=== PATIENT | female | born 1945 | race Caucasian/White ===

== ENCOUNTER → 2018-10-05 12:58 | Outpatient (CLI) | payer MEDICARE, OTHER, SELFPAY ==
--- NOTE | 2018-10-05 13:04 | DI.RAD.S_ITS ---
PROCEDURE: XR TOE RT MIN 2V INDICATIONS: big toe injury TECHNIQUE: 3 views of the first toe(s) acquired. COMPARISON: None. FINDINGS: Bones: No fractures or dislocations. No suspicious bony lesions. Soft tissues: No suspicious soft tissue densities. IMPRESSION: No fracture found, and no subluxation seen. Dictated by: Darrius Branch M.D. on 10/05/2018 at 13:29 Approved by: Darrius Branch M.D. on 10/05/2018 at 13:29
== END ==
PROVIDERS: Family Provider Family Medicine; PCP Family Medicine; Visit Provider Physician Assistant
DX: S99.921A Unspecified injury of right foot, initial encounter (principal); M79.674 Pain in right toe(s); X58.XXXA Exposure to other specified factors, initial encounter
CPT/HCPCS: 73660; 87070; 87205

== ENCOUNTER → 2018-10-05 13:56 | Outpatient (CLI) | payer MEDICARE, OTHER, SELFPAY | PROVIDERS: Family Provider Family Medicine; PCP Family Medicine; Visit Provider Physician Assistant | DX: T14.8XXA Other injury of unspecified body region, initial encounter (principal); M79.676 Pain in unspecified toe(s); M79.674 Pain in right toe(s) | CPT/HCPCS: 87070; 87205 ==

== ENCOUNTER 2019-12-09 06:56 | Emergency (ER) | payer MEDICARE, OTHER, SELFPAY ==
[2019-12-09] VITALS (7 sets, daily range): BP systolic 149–199; BP diastolic 68–81; PULSE 63–69; RESP 18; TEMP 36.6; O2SAT 91–99; BMI 30.7
--- NOTE | 2019-12-09 06:58 | ED_ITS ---
HPI - Abdominal Pain General Chief Complaint: Urogenital-Female Stated Complaint: LOWER RIGHT SIDE ABOMDINAL PAIN Time Seen by Provider: 12/09/19 06:58 Source: patient and family Mode of arrival: Ambulatory Limitations: no limitations History of Present Illness HPI narrative: 74-year-old female nonsmoker without significant medical history presents with her and a chief complaint of severe right lower quadrant pain with radiation to the back that started last night. She states that started rather suddenly and seems to come in waves. It is associated with some chills had a few episodes of vomiting. She did have 1 loose stool and states that the vomiting and bowel movement did not affect her discomfort whatsoever. She has had trouble starting urine stream. She denies any history of the same. She largely denies any provocation or palliation. MD complaint: abdominal pain and flank pain Onset (ago): hour(s) Pain Consistency: intermittent Location: RLQ Severity: moderate Quality: cramping, stabbing and aching Radiation: R flank Relieving factors: nothing Exacerbating factors: nothing Context: possible food poisoning Associated symptoms: nausea and vomiting Related Data Previous Rx's Medication Instructions Recorded azithromycin [Zithromax] 250 mg PO QDAY 5 Days #0 tab 05/04/17 hydrocodone-acetaminophen 1 tab PO Q4-6H PRN #10 tab 12/09/19 ketorolac 10 mg PO Q6H PRN #14 tab 12/09/19 ondansetron 4 mg PO TID-QID PRN #10 tab 12/09/19 tamsulosin [Flomax] 0.4 mg PO DAILY #10 cap 12/09/19 Allergies Allergy/AdvReac Type Severity Reaction Status Date / Time Sulfa (Sulfonamide Allergy Unknown Verified 12/09/19 09:12 Antibiotics) [SULFA (SULFONAMIDE ANTIBIOTICS)] Review of Systems Constitutional Constitutional: Denies chills, Denies fatigue, Denies fever(s), Denies frequent falls, Denies lethargy and Denies weakness Eyes Eyes: Denies change in vision, Denies eye discharge, Denies irritation and Denies loss of vision ENT Ears, Nose, Mouth, and Throat: Denies change in voice, Denies dizziness, Denies neck pain, Denies sore throat and Denies throat swelling Cardiovascular Cardiovascular: Denies chest pain, Denies irregular heart rhythm, Denies lightheadedness, Denies palpitations, Denies dyspnea, Denies dyspnea on exertion and Denies orthopnea Respiratory Respiratory: Denies cough, Denies dyspnea, Denies dyspnea on exertion and Denies wheezing Gastrointestinal Gastrointestinal: Reports abdominal pain, Denies change in bowel habits, Reports diarrhea, Reports nausea and Reports vomiting Genitourinary Genitourinary: Reports difficulty voiding Musculoskeletal Musculoskeletal: Denies neck pain and Denies numbness Integumentary/Breasts Skin/Breast: Denies pruritus, Denies erythema, Denies rash and Denies wounds Neurologic Neurologic: Denies behavioral changes, Denies confusion, Denies dizziness, Denies frequent falls, Denies loss of vision, Denies numbness and Denies weakness Psychiatric Psychiatric: Denies anxiety, Denies behavioral changes, Denies confusion, Denies depression, Denies homicidal ideation and Denies suicidal ideation Endocrine Endocrine: Denies fatigue, Denies flushing and Denies palpitations Hematologic/Lymphatic Hematologic/Lymphatic: Denies easy bruising Allergic/Immunologic Allergic/Immunologic: Denies urticaria, Denies throat swelling and Denies w heezing Patient History Social History Smoking Status: Never smoker Smoking Status: Never smoker alcohol intake frequency: 0-2 drinks per day Substance Use Type: does not use Exam Narrative Exam Narrative: GENERAL: [74] year old patient appears stated age. Well- nourished, well-developed patient, in mild distress. Obviously uncomfortable HEAD: Atraumatic. Normocephalic. EYES: Pupils equal round and reactive. Extraocular motions intact. No scleral icterus. No injection or drainage. ENT: Nose without bleeding, purulent drainage. Throat without erythema, tonsillar hypertrophy or exudate. Airway patent. NECK: Trachea midline. Non tender CARDIOVASCULAR: Regular rate and rhythm without murmurs, gallops, or rubs. RESPIRATORY: Clear to auscultation. Breath sounds equal bilaterally. No wheezes, rales, or rhonchi. GASTROINTESTINAL: Abdomen soft, non-tender, nondistended. EXTREMITIES: No edema or joint tenderness. BACK: Nontender without deformity or crepitance. No flank tenderness. NEURO: AOx3. SKIN: No rash or erythema of visible areas Initial Vital Signs Initial Vital Signs: Vital Signs Temperature 97.8 F 12/09/19 07:00 Pulse Rate 69 12/09/19 07:00 Respiratory Rate 18 12/09/19 07:00 Blood Pressure 199/81 H 12/09/19 07:00 Pulse Oximetry 96 12/09/19 07:00 Course Orders Ordered: ED Orders 12/09/19 07:10 Complete Blood Count AUTO DIFF Stat Comprehensive Metabolic Panel Stat 12/09/19 08:01 CT kidney ureter bladder (KUB) Stat Discontinued Medications Hydrocodone Bitart/Acetaminophen ([place] 5/325) 1 tab PO NOW ONE Stop: 12/09/19 09:02 Last Admin: 12/09/19 09:12 Dose: 1 tab Documented by: REYNA Sodium Chloride (Normal Saline 0.9%) 1,000 mls @ 1,000 mls/hr IV BOLUS ONE Stop: 12/09/19 08:07 Last Admin: 12/09/19 07:18 Dose: 1,000 mls/hr Documented by: JAYCOB Ketorolac Tromethamine (Toradol) 15 mg IV NOW ONE Stop: 12/09/19 07:09 Last Admin: 12/09/19 07:18 Dose: 15 mg Documented by: JAYCOB Ondansetron HCl (Zofran) 4 mg IV Q4HR PRN PRN Reason: Nausea And Vomiting Last Admin: 12/09/19 07:18 Dose: 4 mg Documented by: JAYCOB Vital Signs Vital signs: Vital Signs - 8 hr 12/09/19 07:00 12/09/19 07:48 12/09/19 08:00 Temperature 97.8 F Pulse Rate 69 67 64 Respiratory Rate 18 Blood Pressure 199/81 H Pulse Oximetry 96 91 96 12/09/19 08:01 12/09/19 08:11 12/09/19 08:30 Temperature Pulse Rate 64 63 64 Respiratory Rate Blood Pressure 149/68 H 154/75 H 155/73 H Pulse Oximetry 96 99 97 12/09/19 09:00 Temperature Pulse Rate 67 Respiratory Rate Blood Pressure 151/69 H Pulse Oximetry 98 MDM - Abdominal Pain Lab Data Result diagrams: 12/09/19 07:10 12/09/19 07:10 Labs: Lab Results 12/09/19 12/09/19 Range/Units 07:10 07:10 WBC 13.1 H (4.5-11.0) X10^3/uL RBC 4.43 (4.0-5.2) X10^6/uL Hgb 14.3 (12.0-16.0) g/dL Hct 41.7 (36-46) % MCV 94.1 (80-100) fL MCH 32.3 (26-34) PG MCHC 34.4 (30-36) % RDW 12.7 (11.6-14.8) % Plt Count 225 (150-400) X10^3/uL Neut % (Auto) 90.8 H (50-75) % Lymph % (Auto) 5.0 L (25-40) % [place] % (Auto) 3.7 (3-14) % Eos % (Auto) 0.1 L (2-4) % Baso % (Auto) 0.4 (0-2) % Neut # (Auto) 01036 H (2676-8619) /uL Lymph # (Auto) 700 L (1959-7113) /uL [place] # (Auto) 500 (0-900) /uL Eos # (Auto) 0 (0-450) /uL Baso # (Auto) 0 (0-100) /uL Sodium 137 (137-145) mmol/L Potassium 4.1 (3.4-5.1) mmol/L Chloride 105 (98-107) mmol/L Carbon Dioxide 25 (22-32) mmol/L BUN 22 H (7-17) mg/dL Creatinine 0.75 (0.52-1.04) mg/dL Estimated GFR > 60.0 (>60) mL/min BUN/Creatinine Ratio 29.3 H (6-22) Glucose 164 H (80-110) mg/dL Calcium 9.2 (8.4-10.2) mg/dL Total Bilirubin 0.7 (0.2-1.3) mg/dL AST 32 (14-36) IU/L ALT 18 (<35) IU/L Alkaline Phosphatase 77 (38-126) U/L Total Protein 7.8 (6.3-8.2) g/dL Albumin 4.5 (3.5-5.0) g/dL Globulin 3.3 (1.7-4.1) g/dL Albumin/Globulin Ratio 1.4 (1.0-2.8) Point of care testing: Urine Dip Bedside Urine Glucose Negative Bedside Urine Bilirubin - Negative Bedside Urine Ketone + 15 Urine Specific [place] 1.030 Bedside Urine Occult Blood ++ Bedside Urine pH 5.5 Bedside Urine Protein +/- 15 Bedside Urine Urobilinogen - Negative Bedside Urine Nitrite - Negative Bedside Urine Leukocytes - Negative Esterase Imaging Data CT scan - abdomen/pelvis: Radiologist's Impression: R UVJ stone 3-4mm, with minimal obstruction Discharge Plan Departure Patient Disposition: Home Clinical Impression: Kidney stone on right side Discharge Date/Time: 12/09/19 09:32 Instructions: DI for Kidney Stones Activity Restrictions/Additional Instructions: *You have been diagnosed with [right-sided kidney stone] *What to do: *Take medications as directed: Your prescriptions have been sent to [facility] at your request. *Follow up with your primary care provider in 2-3 days, call for an appointment. Let them know you were seen in the Emergency Department and that we ask that you be seen in follow up *Return to ER if you should have any new, worsening or concerning symptoms, such as [worsening pain, fever, shaking chills, persistent vomiting or other bothersome symptoms As mentioned at the time of her discharge there was an incidental finding of a 2.3cm lesion in your lower pelvis, this is very unlikely playing a role in your symptoms today. Radiology recommends that it be followed up by a nonemergent outpatient pelvic ultrasound, which your doctor can help you with.] Prescriptions: New hydrocodone-acetaminophen 5-325 mg tablet 1 tab PO Q4-6H PRN (Reason: pain) Qty: 10 RF: 0 ketorolac 10 mg tablet 10 mg PO Q6H PRN (Reason: pain) Qty: 14 RF: 0 tamsulosin [Flomax] 0.4 mg capsule 0.4 mg PO DAILY Qty: 10 RF: 0 ondansetron 4 mg tablet,disintegrating 4 mg PO TID-QID PRN (Reason: nausea and vomiting) Qty: 10 RF: 0 No Action azithromycin [Zithromax] 250 MG tablet 250 mg PO QDAY 5 Days Qty: 0 RF: 0 Referrals: Jacoby Mcdermott MD [Primary Care Provider] -
[2019-12-09 07:15] LABS: Add Manual Diff / Slide Review NO; Basophils Absolute Auto 0 /uL (0-100); Basophils Percent Auto 0.4 % (0-2); Eosinophils Absolute Auto 0 /uL (0-450); Eosinophils Percent Auto 0.1 % (2-4); Hematocrit 41.7 % (36-46); Hemoglobin 14.3 g/dL (12.0-16.0); Lymphocytes Absolute Auto 700 /uL (1100-4500); Mean Corpuscular HGB Conc 34.4 % (30-36); Mean Corpuscular Hemoglobin 32.3 PG (26-34); Mean Corpuscular Volume 94.1 fL (80-100); Monocytes Absolute Auto 500 /uL (0-900); Monocytes Percent Auto 3.7 % (3-14); Neutrophils Absolute Auto 11900 /uL (1500-7000); Neutrophils Percent Auto 90.8 % (50-75); Platelet Count 225 X10^3/uL (150-400); Red Blood Cell Count 4.43 X10^6/uL (4.0-5.2); Red Cell Distribution Width 12.7 % (11.6-14.8); White Blood Cell Count 13.1 X10^3/uL (4.5-11.0)
[2019-12-09] MEDS: ONDANSETRON 4 MG/2 ML INJ IV (07:18)
[2019-12-09] MEDS: KETOROLAC 60 MG/2 ML VIAL 15 MG IV (07:18)
[2019-12-09] MEDS: SODIUM CHLORIDE 0.9% 1,000 ML 1000 ML IV (07:18)
[2019-12-09 07:35] LABS: Alanine Aminotransferase 18 IU/L (<35); Albumin 4.5 g/dL (3.5-5.0); Albumin Globulin Ratio 1.4 (1.0-2.8); Alkaline Phosphatase 77 U/L (38-126); Aspartate Aminotransferase 32 IU/L (14-36); BUN Creatinine Ratio 29.3 (6-22); Bilirubin Total 0.7 mg/dL (0.2-1.3); Blood Urea Nitrogen 22 mg/dL (7-17); Calcium 9.2 mg/dL (8.4-10.2); Carbon Dioxide 25 mmol/L (22-32); Chloride 105 mmol/L (98-107); Estimated Glomerular Filt Rate > 60.0 mL/min (>60); Globulin 3.3 g/dL (1.7-4.1); Glucose 164 mg/dL (80-110); HEMOLYSIS 48 (0-50); Potassium 4.1 mmol/L (3.4-5.1); Sodium 137 mmol/L (137-145); Total Protein 7.8 g/dL (6.3-8.2)
--- NOTE | 2019-12-09 08:01 | DI.CT.S_ITS ---
This report includes an Addendum and supersedes previous reports for this exam. PROCEDURE: CT KIDNEY URETER BLADDER (KUB) INDICATIONS: severe right lower quadrant pain, radiation to flank TECHNIQUE: Noncontrast 5 mm thick sections acquired from the diaphragms to the symphysis. 5 mm thick coronal and sagittal reformats were then performed. For radiation dose reduction, the following was used: automated exposure control, adjustment of mA and/or kV according to patient size. COMPARISON: None. FINDINGS: Image quality: Excellent. Lung bases: Lung bases are clear. Heart size is normal. Mild distal right ureteral calculus measuring 3-4 mm image 70/2. There is associated mild right hydroureteronephrosis. No other urolithiasis is seen. No evidence of right-sided urinary obstruction. Bladder is partially decompressed otherwise grossly unremarkable. Simple appearing right renal cyst measuring 3-4 cm. There is mild right perinephric stranding Subcentimeter hepatic foci are statistically cysts or hemangiomas, although technically too small to characterize accurately and therefore nonspecific. Gallbladder unremarkable . Pancreas is normal in contours. Spleen is normal in size. No adrenal nodules. Peritoneum and bowel: Unenhanced bowel loops demonstrate normal wall thickness and caliber. No free fluid or air. Normal appendix. Colonic diverticulosis is seen without evidence of acute complication. Nodes and vessels: No retroperitoneal or mesenteric adenopathy by size criteria. Aorta and inferior vena cava are normal in caliber. Abdominal wall: No ventral hernias. Pelvis: No free pelvic fluid. No inguinal hernias or adenopathy. Lobular appearance of the uterus, suggestive of multiple uterine fibroids although this could be confirmed with dedicated pelvic ultrasound. Left adnexal mass seen on image 70/2 could be additional exophytic uterine fibroid measuring 2.0 x 2.7 cm although cannot exclude ovarian lesion therefore recommend further assessment with dedicated pelvic ultrasound. Bones: No vertebral body compression fracture. Spondylytic changes and facet arthropathy. IMPRESSION: Mildly obstructive distal right ureteral calculus measuring 3-4 mm. No other urolithiasis. Right renal cyst Indeterminate 2.3 cm left adnexal lesion as discussed above. Recommend further assessment with dedicated pelvic ultrasound in the nonemergent setting. Additionally, presumed multiple uterine fibroids. Dictated by: on 12/09/2019 at 8:21 Approved by: on 12/09/2019 at 8:29 ADDENDUM: Diffuse spondylosis and facet arthropathy. Dictated by: Familia Benoit M.D. on 12/09/2019 at 8:40 Approved by: Familia Benoit M.D. on 12/09/2019 at 8:40
[2019-12-09] MEDS: HYDROCODONE/ACET 5/325 TABLET 1 TAB PO (09:12)
== END 2019-12-09 09:32 | disposition home or self-care (01) ==
PROVIDERS: Emergency Provider Emergency Medicine; Family Provider Family Medicine; PCP Family Medicine
DX: N20.0 Calculus of kidney (principal); R11.2 Nausea with vomiting, unspecified
CPT/HCPCS: 36415; 74176; 80053; 81003; 85025; 96361; 96374; 96375; 99284; J1885; J2405

== ENCOUNTER → 2020-01-01 13:24 | Outpatient (CLI) | payer MEDICARE, OTHER, SELFPAY ==
--- NOTE | 2020-01-01 13:27 | DI.MRI.S_ITS ---
PROCEDURE: MR ABDOME PELVIS WWO CON INDICATIONS: adnexal mass not seen on US TECHNIQUE: Coronal HASTE, axial 2D FLASH in- and [id number]; axial breath-hold T2 FSE; dynamic axial VIBE during IV gadolinium administration; postgadolinium coronal VIBE or 2D FLASH with fat saturation from the hepatic dome to the iliac crests. COMPARISON: [facility], CT, CT KIDNEY URETER BLADDER (KUB), 12/09/2019, 8:04. FINDINGS: Image quality: Excellent. Lung bases: No pleural effusion. Solid organs: Liver is normal in size. A few benign hepatic cysts. No significant steatosis. No focal lesion. Gallbladder is unremarkable. No biliary ductal dilatation. No splenomegaly. Pancreas is unremarkable. No adrenal nodule. No solid renal mass. No hydronephrosis. A cyst at the inferior pole of the right kidney measuring 3.6 cm within septation. No enhancement. Nodes and vessels: No adenopathy. No aortic aneurysm. Bowel and peritoneum: No dilated loops of bowel. The stomach is not distended. No ascites. Pelvis: Fibroid anteverted uterus measures 8.4 x 6.4 x 5.6 cm. Exophytic/subserosal fibroid in the region of the left adnexa measuring 2.1 x 1.9 x 1.8 cm, (7/10). This corresponds to the abnormality seen on CT KUB. Larger intramural fibroid measuring at 2.7 x 2.5 x 2 cm, (6/17). Endometrial thickness measures 3 mm. T2 hyperintense cystic structure at the cervix measuring 2.6 x 1.9 x 1.8 cm, (24/113). No enhancement. No restricted diffusion. Vagina is unremarkable. Ovaries are not identified. Bones and soft tissues: No aggressive appearing lesion. IMPRESSION: 1. Abnormality seen on prior CT KUB in the region of the left adnexa is consistent with a exophytic/subserosal uterine fibroid measuring at 2.1 cm. 2. Mildly enlarged fibroid uterus. 3. No endometrial thickening. 4. T2 hyperintense cystic lesion in the region of the cervix measuring at 2.6 cm. No enhancement or restricted diffusion. This could represent a nabothian cyst. However, cystic mucinous cervical neoplasm could have a similar appearance. -recommend evaluation with transvaginal ultrasound if not yet performed. Dictated by: Raymundo Delgado M.D. on 01/01/2020 at 16:02 Approved by: Raymundo Delgado M.D. on 01/01/2020 at 16:24
== END ==
PROVIDERS: Family Provider Family Medicine; PCP Registered Nurse; Referring Provider Obstetrics & Gynecology; Visit Provider Obstetrics & Gynecology
DX: D25.2 Subserosal leiomyoma of uterus (principal)
CPT/HCPCS: 72197

== ENCOUNTER → 2020-01-13 13:02 | Outpatient (CLI) | payer MEDICARE, OTHER, SELFPAY ==
--- NOTE | 2020-01-13 | DI.US.S_ITS ---
ULTRASOUND OF LEFT BREAST: 01/13/2020 CLINICAL: Focal left breast pain retroareolar. Comparison is made to exam dated: 01/13/2020 [facility]. Color flow and real-time ultrasound of the left breast were performed. Mcleod scale images of the real-time examination were reviewed. No significant abnormalities were seen sonographically in the left breast. IMPRESSION: NEGATIVE There is no sonographic evidence of malignancy. There is no abnormality seen in the left breast to correspond with the area of clinical concern and pain in the sub-areolar depth or the upper outer quadrant, however, recommend clinical follow up for persistent or worsening symptoms, or development of any clinically suspicious findings. A 1 year screening mammogram is recommended. This exam was interpreted at Station ID: [id number]. Electronically Signed By: Rodrigo Gama M.D. aty/:01/13/2020 15:12:10 letter sent: Clinical Evaluation Ultrasound BI-RADS: 1 Negative
--- NOTE | 2020-01-13 | DI.MG.S_ITS ---
BILATERAL DIGITAL DIAGNOSTIC MAMMOGRAM 3D/2D: 01/13/2020 CLINICAL: Bilateral breast pain. Comparison is made to exams dated: 08/28/2013 mammogram and 04/17/2015 mammogram - [facility]. There are scattered fibroglandular elements in both breasts. No significant masses, calcifications, or other findings are seen in either breast. IMPRESSION: INCOMPLETE: NEEDS ADDITIONAL IMAGING EVALUATION There is no abnormality seen in either breast to correspond with the diffuse areas of pain. There is no abnormality seen in the left breast to correspond with area of nipple pain. There is no abnormality seen in the left breast to correspond with the area of clinical concern represented by focal pain at 1:30 o'clock. Further evaluation of the left nipple/retroareaolar region and area of palpable pain by ultrasound is recommended which is scheduled to immediately follow this examination. This exam was interpreted at Station ID: [id number]. NOTE: For mammograms, a report in lay terms will be sent to the patient. Approximately 15% of breast malignancies will not be visualized mammographically. In the management of a palpable breast mass, a negative mammogram must not discourage biopsy of a clinically suspicious lesion. Electronically Signed By: Rodrigo Gama M.D. aty/:01/13/2020 15:02:01 ACR BI-RADS Category 0: Incomplete [id number]
== END ==
PROVIDERS: Family Provider Family Medicine; PCP Registered Nurse; Referring Provider Registered Nurse; Visit Provider Registered Nurse
DX: R92.8 Other abnormal and inconclusive findings on diagnostic imaging of breast (principal); N64.4 Mastodynia; N63.20 Unspecified lump in the left breast, unspecified quadrant
CPT/HCPCS: 76642; 77066; G0279

== ENCOUNTER → 2020-01-13 15:02 | Outpatient (CLI) | payer MEDICARE, OTHER, SELFPAY ==
[2020-01-13 16:40] LABS: Appearance Urine UA CLEAR; Bilirubin Urine UA NEGATIVE (NEGATIVE); Color Urine UA YELLOW; Glucose Urine UA NEGATIVE (Negative); Ketones Urine UA NEGATIVE (NEGATIVE); Leukocyte Esterase Urine UA NEGATIVE (NEGATIVE); Nitrite Urine UA NEGATIVE (Negative); Occult Blood Urine UA NEGATIVE (Negative); Protein Urine UA NEGATIVE (Negative); Specific Gravity Urine UA 1.025 (1.000-1.035); Urobilinogen Urine UA 0.2 E.U./dL (0.2)
== END ==
PROVIDERS: Family Provider Family Medicine; PCP Registered Nurse; Referring Provider Specialist; Visit Provider Specialist
DX: N39.0 Urinary tract infection, site not specified (principal)
CPT/HCPCS: 81003

== ENCOUNTER → 2020-01-23 09:27 | Outpatient (CLI) | payer MEDICARE, OTHER, SELFPAY ==
[2020-01-23 11:33] LABS: COVID19 -Nasal RAPID Negative (Negative)
[2020-02-20 12:51] LABS: Stone Analysis Source URINARY TRACT
[2020-02-20 12:52] LABS: Composition Please see comment
== END ==
PROVIDERS: Surgery; Family Provider Family Medicine; PCP Registered Nurse; Referring Provider Registered Nurse; Visit Provider Specialist
DX: Z11.59 Encounter for screening for other viral diseases (principal); N20.0 Calculus of kidney
CPT/HCPCS: 82365; 87635

== ENCOUNTER 2020-01-24 08:11 | Day surgery (SDC) | payer MEDICARE, OTHER, SELFPAY ==
[2020-01-24] VITALS (13 sets, daily range): BP systolic 127–162; BP diastolic 68–86; PULSE 59–68; RESP 10–19; TEMP 36.3–37; O2SAT 95–99; BMI 31.4
--- NOTE | 2020-01-24 | PATH_ITS ---
[facility] Accession Number: [id number] . 01 Material submitted: . PART A: colon - POLYPS AT 90CM PART B: colon - POLYPS AT 70CM PART C: colon - POLYPS AT 60CM PART D: colon - POLYPS AT 20CM . 01 Clinical history: . SCREENING COLONOSCOPY . 02 Diagnosis: A. Colon Polyps at 90 cm, Biopsies: Fragments of colonic mucosa with prominent benign lymphoid aggregates and fragments of colonic mucosa with no diagnostic abnormality. . B. Colon Polyp at 70 cm, Biopsy: Tubular adenoma. . C. Colon Polyps at 60 cm, Biopsies: Tubular adenoma x1. Colonic mucosa with focal mucosal hyperplasia x1. . D. Colon Polyps at 20 cm, Biopsies: Fragment of tubular adenoma and fragments of hyperplastic polyp. [facility] 01/28/2020 1058 Local . 02 Electronically signed: . Praneeth Serrano MD, PhD, Pathologist NPI- [id number] . 01 Gross description: . Part A: POLYPS AT 90CM: Received in formalin are 6 fragment(s) of ortiz, soft tissue measuring 0.6 x 0.3 x 0.2 cm to 0.1 x 0.1 x 0.1 cm submitted entirely in 1 cassette(s) Part B: POLYPS AT 70CM: Received in formalin is 1 fragment(s) of ortiz, soft tissue measuring 0.3 x 0.3 x 0.2 cm submitted entirely in 1 cassette(s) Part C: POLYPS AT 60CM: Received in formalin are 2 fragment(s) of ortiz, soft tissue measuring 0.4 x 0.3 x 0.2 cm to 0.3 x 0.2 x 0.1 cm submitted entirely in 1 cassette(s) Part D: POLYPS AT 20CM: Received in formalin are 5 fragment(s) of ortiz, soft tissue measuring 0.5 x 0.3 x 0.2 cm to 0.2 x 0.1 x 0.1 cm submitted entirely in 1 cassette(s) /QBJ 01/25/2020 1030 Local . 02 Pathologist provided ICD-10: D12.6, K63.5 . 02 CPT . 091857, 511215, 891116, 568459 Performed at: 01 [facility] [address] [place] [address], [place], [place] [id number] MD Miles Morelos MD Phone: [phone] Performed at: [facility] [address] [place], [place] [id number] MD Shannan Frederick MD Phone: [phone]
[2020-01-24] MEDS: SODIUM CHLORIDE 0.9% 1,000 ML 200 ML IV (08:41)
--- NOTE | 2020-01-24 09:07 | PM.HP.1 ---
History of Present Illness History of Present Illness Date Patient Seen: 01/24/20 Time Patient Seen: 09:07 Chief complaint: SCREENING COLONOSCOPY Narrative: This is a 74-year-old woman who has a history of colonoscopy 5 years ago, which reportedly for the patient revealed benign polyps, but I am not able to access that report. She denies any new onset of abdominal pain, change in bowel habit, hematochezia, melena, unexplained weight loss. She denies any family history of colon polyps or colon cancers. She says she is otherwise well and not experiencing any new health problems. She denies ever having a heart attack or stroke. ROS: She complains of perianal discomfort from the colonoscopy prep, and some inflamed hemorrhoids. Thirteen system review is otherwise negative other than as mentioned below and in HPI. PE GENERAL: Well groomed and cooperative. Appears stated age. Answers questions promptly and appropriately. Vital signs noted. HENT: Normocephalic, atraumatic. Hearing intact. EYES: Conjunctiva pink, sclera white, no periorbital swelling. CARDIOVASCULAR: Regular rate. No pedal edema. RESPIRATORY: Non-tachypneic, breathing comfortably on room air. GASTROINTESTINAL: Abdomen soft and non-distended GENITALURINARY: No flank tenderness. MUSCULOSKELETAL: Equal tone and mass bilaterally. SKIN: Warm, dry, soft, appropriate color for ethnicity. No other lesions, rashes, or wounds. NEURO: Alert and Oriented X 3. No gross sensory deficits, or cognitive issues. PSYCH: Appropriate affect and mood. Patient History Medical History Fibroids Heavy menstrual period (~1960) Hypothyroidism Painful menstrual periods (~1960) Surgical History H/O tubal ligation History of tonsillectomy Family & Social History Social History: household members friend(s) Tobacco & Substance use: Smoking Status Former smoker alcohol intake never alcohol intake frequency 0-2 drinks per day Substance Use Type does not use Meds Home Medications and Allergies Home Medications Medication Instructions Recorded Confirmed Type levothyroxine 75 mcg capsule 75 mcg PO DAILY 12/20/19 01/24/20 History bupropion HCl 150 mg 24 hr tablet, 150 mg PO QAM 01/03/20 01/24/20 History extended release Allergies Allergy/AdvReac Type Severity Reaction Status Date / Time Sulfa (Sulfonamide Allergy Unknown Verified 01/03/20 13:14 Antibiotics) [SULFA (SULFONAMIDE ANTIBIOTICS)] Exam Vital Signs (past 8 hours): - 01/24/20 08:35 Temperature 98.6 F Pulse Rate 66 Respiratory Rate 16 Blood Pressure 139/79 Pulse Oximetry 97 Oxygen Delivery Method Room Air Assessment & Plan Assessment and plan (1) Obesity (BMI 30.0-34.9): Status: Chronic (2) Personal history of colonic polyps: Status: Acute Assessment & Plan narrative: Risks and benefits of screening colonoscopy and possible polypectomy were discussed with the patient including risk of bleeding, perforation, need for additional procedures, risks of anesthesia. The patient desires to proceed with the colonoscopy procedure. COVID-19 COVID-19 status: Negative Result date/Date tested (Pos, Neg/Pending): 01/23/20 Time Spent With Patient Time with patient: 15-24 minutes Quality VTE Deep Vein Thrombosis/Pulmonary Embolism Present on Admission: No
--- NOTE | 2020-01-24 09:10 | PM.OP.ENDO ---
Operative Date/Time/Diagnoses Date of procedure: 01/24/20 Time of procedure: 09:10 Pre-op diagnosis: Personal history of colon polyps Post-op diagnosis: other (Multiple colon polyps) Procedure & Clinicians Study performed: Colonoscopy Procedural sedation performed by the endoscopist Polypectomy x7 with Jumbo forceps Same procedure as scheduled: Yes Indications: Personal history colon polyps, due for surveillance colonoscopy Surgeon: Alia Denson Procedure Notes SCOAP/Timeout: Performed Procedure in detail: The patient was brought to the room and placed in left lateral decubitus position with all bony prominences padded. A time-out was performed and then the patient was given procedural sedation starting with 4 mg of Versed and 100 mcg of fentanyl. A total of 12 mg of Versed and 300 micro g of fentanyl were given for the entire procedure. Vitals were monitored throughout the procedure and remained stable. Once adequately sedated, the procedure was begun. A rectal exam was performed revealing no abnormalities. The colonoscope was then introduced to the rectum and advanced to the cecum in the usual fashion. The cecum was identified by the appendiceal orifice, the mucosal tri-fold, and the ileocecal valve. The scope was then retracted while rotating side to side and examining each mucosal fold. Multiple polyps were found removed at 90 cm, 70 cm, 60 cm and 20 cm in the colon. At the conclusion of the procedure retroflexion was performed and small grade 1-2 internal hemorrhoids without stigmata of bleeding were seen. The scope was then withdrawn from the rectum the procedure was concluded. The patient tolerated the procedure well and was transferred to the PACU in stable condition. Scope withdrawal time: 17 Sedation minutes: 45 Findings: polyp (Multiple polyps) Specimen(s): other (Multiple small polyps sent from 90 cm, 70 cm, 60 cm and 20 cm in the colon) Complications: none Impression: Multiple small polyps throughout the colon, all appear precancerous/benign Post-procedure Recommendations: Colonscopy in 5 years Follow up: as needed Disposition: PACU
[2020-01-24] MEDS: fentaNYL 250 MCG/5 ML INJ IV (09:29)
[2020-01-24] MEDS: MIDAZOLAM 5 MG/5 ML VIAL IV (09:29)
[2020-01-24] MEDS: DIBUCAINE 1% OINT 28 GM 1 APPLIC TOP (10:00)
--- NOTE | 2020-01-24 10:34 | SUR.PHASEI ---
Patient remains drowsy but arousable. Patient had a large amount of sedation for the procedure due to discomfort.
== END 2020-01-24 11:21 | disposition home or self-care (01) ==
PROVIDERS: Family Provider Family Medicine; PCP Registered Nurse; Referring Provider Registered Nurse; Visit Provider Surgery
PROC: 0DJD8ZZ Inspection of Lower Intestinal Tract, Via Natural or Artificial Opening Endoscopic (ICD-10-PCS; CPT 45378; principal; 2020-01-24 09:15)
DX: Z12.11 Encounter for screening for malignant neoplasm of colon (principal); Z86.010 Personal history of colon polyps; E03.9 Hypothyroidism, unspecified; K64.1 Second degree hemorrhoids; K64.4 Residual hemorrhoidal skin tags; D12.6 Benign neoplasm of colon, unspecified
CPT/HCPCS: 45380; 99152; 99153; J2250; J3010

== ENCOUNTER → 2020-03-13 16:56 | Outpatient (CLI) | payer MEDICARE, OTHER, SELFPAY ==
[2020-03-16 15:36] LABS: Candida species Positive (Negative); Gardnerella vaginalis Positive (Negative); Trichomoas vaginalis Negative (Negative)
== END ==
PROVIDERS: Family Provider Family Medicine; PCP Registered Nurse; Visit Provider Obstetrics & Gynecology
DX: N89.8 Other specified noninflammatory disorders of vagina (principal); R10.2 Pelvic and perineal pain
CPT/HCPCS: 87480; 87510; 87660

== ENCOUNTER → 2020-04-01 14:17 | Outpatient (CLI) | payer MEDICARE, OTHER, SELFPAY ==
[2020-04-01 15:57] LABS: Appearance Urine UA CLEAR; Bilirubin Urine UA NEGATIVE (NEGATIVE); Color Urine UA YELLOW; Glucose Urine UA NEGATIVE (Negative); Ketones Urine UA TRACE (NEGATIVE); Leukocyte Esterase Urine UA NEGATIVE (NEGATIVE); Nitrite Urine UA NEGATIVE (Negative); Occult Blood Urine UA 1+ (Negative); Protein Urine UA 1+ (Negative); Specific Gravity Urine UA 1.025 (1.000-1.035); Urobilinogen Urine UA 0.2 E.U./dL (0.2)
[2020-04-01 16:14] LABS: pH Urine UA 5.5 (4.5-8.0)
[2020-04-01 16:15] LABS: Bacteria Urine Few (2-10); Culture Indicated Urine Cult Not Indicated; RBC Urine 1-5/HPF (0-5/HPF); Squamous Epithelial Cell Urine 1-5 /HPF (0-5/HPF); WBC Urine 0-1/HPF (0-5/HPF)
== END ==
PROVIDERS: Family Provider Family Medicine; PCP Registered Nurse; Referring Provider Specialist; Visit Provider Specialist
DX: R30.0 Dysuria (principal); R35.0 Frequency of micturition
CPT/HCPCS: 81001

== ENCOUNTER → 2020-04-02 09:33 | Outpatient (CLI) | payer MEDICARE, OTHER, SELFPAY | PROVIDERS: Family Provider Family Medicine; PCP Registered Nurse; Visit Provider Obstetrics & Gynecology | DX: R32 Unspecified urinary incontinence (principal); R39.89 Other symptoms and signs involving the genitourinary system; R39.9 Unspecified symptoms and signs involving the genitourinary system | CPT/HCPCS: 87086 ==

== ENCOUNTER → 2020-04-24 14:50 | Outpatient (CLI) | payer MEDICARE, OTHER, SELFPAY ==
[2020-04-24 15:00] LABS: Bacteria Urine None Seen; RBC Urine None Seen (0-5/HPF); WBC Urine None Seen (0-5/HPF)
[2020-04-24 15:12] LABS: Appearance Urine UA CLEAR; Bilirubin Urine UA NEGATIVE (NEGATIVE); Color Urine UA YELLOW; Glucose Urine UA NEGATIVE (Negative); Ketones Urine UA NEGATIVE (NEGATIVE); Leukocyte Esterase Urine UA NEGATIVE (NEGATIVE); Nitrite Urine UA NEGATIVE (Negative); Occult Blood Urine UA NEGATIVE (Negative); Protein Urine UA NEGATIVE (Negative); Specific Gravity Urine UA 1.025 (1.000-1.035); Urobilinogen Urine UA 0.2 E.U./dL (0.2)
[2020-04-24 15:14] LABS: pH Urine UA 5.5 (4.5-8.0)
[2020-04-24 15:24] LABS: Culture Indicated Urine Cult Not Indicated; Urine Comments Microscopic Normal
== END ==
PROVIDERS: Family Provider Family Medicine; PCP Registered Nurse; Referring Provider Obstetrics & Gynecology; Visit Provider Obstetrics & Gynecology
DX: R39.9 Unspecified symptoms and signs involving the genitourinary system (principal)
CPT/HCPCS: 81001

== ENCOUNTER 2021-01-01 14:40 | Emergency (ER) | payer MEDICARE, OTHER, SELFPAY ==
[2021-01-01 15:06] VITALS: BP 195/94; PULSE 73; RESP 16; TEMP 36.5; O2SAT 98; BMI 30.7
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
[2021-01-01 19:07] LABS: Add Manual Diff / Slide Review NO; Basophils Absolute Auto 0 /uL (0-100); Basophils Percent Auto 0.6 % (0-2); Eosinophils Absolute Auto 200 /uL (0-450); Eosinophils Percent Auto 2.9 % (2-4); Hematocrit 43.3 % (36-46); Hemoglobin 14.8 g/dL (12.0-16.0); Lymphocytes Absolute Auto 1600 /uL (1100-4500); Lymphocytes Percent Auto 26.9 % (25-40); Mean Corpuscular HGB Conc 34.2 % (30-36); Mean Corpuscular Hemoglobin 32.4 PG (26-34); Mean Corpuscular Volume 94.7 fL (80-100); Monocytes Absolute Auto 600 /uL (0-900); Monocytes Percent Auto 10.2 % (3-14); Neutrophils Absolute Auto 3600 /uL (1500-7000); Neutrophils Percent Auto 59.4 % (50-75); Platelet Count 221 X10^3/uL (150-400); Red Blood Cell Count 4.57 X10^6/uL (4.0-5.2); Red Cell Distribution Width 12.9 % (11.6-14.8); White Blood Cell Count 6.1 X10^3/uL (4.5-11.0)
[2021-01-01 20:15] LABS: Alanine Aminotransferase 20 IU/L (<35); Albumin 4.5 g/dL (3.5-5.0); Albumin Globulin Ratio 1.5 (1.0-2.8); Alkaline Phosphatase 70 U/L (38-126); Aspartate Aminotransferase 25 IU/L (14-36); Bilirubin Total 0.4 mg/dL (0.2-1.3); Blood Urea Nitrogen 15 mg/dL (7-17); Calcium 9.5 mg/dL (8.4-10.2); Carbon Dioxide 29 mmol/L (22-32); Chloride 102 mmol/L (98-107); Estimated Glomerular Filt Rate > 60.0 mL/min (>60); Glucose 96 mg/dL (80-110); HEMOLYSIS < 15 (0-50); Potassium 4.2 mmol/L (3.4-5.1); Sodium 139 mmol/L (137-145); Total Protein 7.5 g/dL (6.3-8.2)
[2021-01-01 20:59] LABS: COVID19 -Nasal RAPID Negative (Negative)
--- NOTE | 2021-01-01 21:25 | ED.HEATRA ---
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 Today that has resolved. She describes no history of migraine and no other acute neurologic symptoms. In August she had a head trauma incident, she and her partner were working outside he was using heavy rate to pull down a tree limb the tree limb broke and the rake rebounded and hit her directly on the crown of her head which is exactly where her pain is today. She is concerned that she is having complications from this incident in August. She does report that all of the August symptoms resolved completely and symptoms for which she is complaining today started on Monday of this week. She states that she has been slightly dizzy somewhat nauseated, no palpitations no cough no chest pain no abdominal pain no dysuria or constipation. She does complain of light sensitivity but has not noticed any taste or smell changes. She is not noticing any paresthesias or other weakness. Related Data Home Medications Medication Instructions Recorded Confirmed levothyroxine 75 mcg capsule 75 mcg PO DAILY 12/20/19 05/11/20 bupropion HCl 150 mg 24 hr tablet, 150 mg PO QAM 01/03/20 05/11/20 extended release (Wellbutrin XL) [facility] NAC PO 03/16/20 05/11/20 [facility] Pregnenolone PO 03/16/20 05/11/20 [facility] Prostate PO 03/16/20 05/11/20 [facility] Relief Factor PO 03/16/20 05/11/20 [facility] Stress gaurd PO 03/16/20 05/11/20 [facility] Vessel Protection PO 03/16/20 05/11/20 Progesterone TRANSDERMAL 03/16/20 05/11/20 [place]'s wort 300 mg capsule 300 mg PO DAILY 03/16/20 05/11/20 ashwagandha root extract 300 mg mg PO 03/16/20 05/11/20 capsule magnesium L- Theonate PO 03/16/20 05/11/20 testosterone 2 mg/24 hour 1 patch TRANSDERMAL DAILY 03/16/20 05/11/20 transdermal 24 hour patch ther-biotic complete PO 03/16/20 05/11/20 zinc gluconate 50 mg tablet 50 mg PO DAILY 03/16/20 05/11/20 Previous Rx's Medication Instructions Recorded CMP Estradiol Vaginal Cream 0.0125% 0.5 - 1 g VAGINAL .COMPLEX #30 g 03/13/20 cefdinir 300 mg capsule 300 mg PO BID #10 cap 04/02/20 fluconazole 150 mg tablet 150 mg PO ONCE #1 tab 05/11/20 Allergies Allergy/AdvReac Type Severity Reaction Status Date / Time Sulfa (Sulfonamide Allergy Unknown Verified 01/01/21 15:15 Antibiotics) [SULFA (SULFONAMIDE ANTIBIOTICS)] Review of Systems Review of Systems Narrative: Remainder of complete review of systems is otherwise unremarkable except for that included in the HPI. Patient History Medical History Fibroids Heavy menstrual period (~1960) History of nephrolithiasis Hypothyroidism Lower urinary tract symptoms (LUTS) Painful menstrual periods (~1960) Surgical History H/O tubal ligation History of tonsillectomy Family History Mother Diabetes mellitus Thyroid disease Hypertension Father Hypertension Social History marital status: household members: friend(s) Smoking Status: Former smoker alcohol intake: never caffeine: Yes Smoking Status: Former smoker alcohol intake frequency: 0-2 drinks per day Substance Use Type: does not use Exam Narrative Exam Narrative: General: Healthy appearing, in mild distress with dark glasses on because of the light sensitivity. HEENT: Moist mucous membranes, normal sclera with reactive pupils, no obvious abnormalities over the crown of her head where the hyperesthesia is. Specifically there is no rashes or vesicular lesions. Neck: No JVD, supple, there is some minor occipital insertion tenderness bilaterally Respiratory: Lungs are clear to auscultation, no wheezing no rales no rhonchi. Full and symmetrical air movement Cardiac: Regular rate and rhythm no murmurs no bruits Abdomen: Soft, nontender, good bowel tones, no flank pain Skin: Warm and dry, no rashes Neurologic: Grossly neurologically intact with no obvious asymmetries or abnormalities. No gait abnormalities no paresthesias and NIH score is 0 on her exam today Extremities: No trauma, well perfused Psych: Cooperative, appropriate insight and affect Initial Vital Signs Initial Vital Signs: Vital Signs Temperature 97.7 F 01/01/21 15:06 Pulse Rate 73 01/01/21 15:06 Respiratory Rate 16 01/01/21 15:06 Blood Pressure 195/94 H 01/01/21 15:06 Pulse Oximetry 98 01/01/21 15:06 Course Orders Ordered: ED Orders 01/01/21 15:20 CT cervical spine wo con Stat CT head/brain wo con Stat 01/01/21 18:50 CBC Auto Diff [Complete Blood Count AUTO DIFF] Stat Comprehensive Metabolic Panel Stat 01/01/21 20:22 COVID19 -Nasal swab/Pre-Proc Stat Vital Signs Vital signs: Vital Signs - 8 hr 01/01/21 15:06 01/01/21 22:03 Temperature 97.7 F Pulse Rate 73 60 Respiratory Rate 16 16 Blood Pressure 195/94 H 144/72 H Pulse Oximetry 98 96 MDM - Head Injury Lab Data Result diagrams: 01/01/21 18:50 01/01/21 18:50 Labs: Lab Results 01/01/21 01/01/21 01/01/21 Range/Units 18:50 18:50 20:22 WBC 6.1 (4.5-11.0) X10^3/uL RBC 4.57 (4.0-5.2) X10^6/uL Hgb 14.8 (12.0-16.0) g/dL Hct 43.3 (36-46) % MCV 94.7 (80-100) fL MCH 32.4 (26-34) PG MCHC 34.2 (30-36) % RDW 12.9 (11.6-14.8) % Plt Count 221 (150-400) X10^3/uL Neut % (Auto) 59.4 (50-75) % Lymph % (Auto) 26.9 (25-40) % [place] % (Auto) 10.2 (3-14) % Eos % (Auto) 2.9 (2-4) % Baso % (Auto) 0.6 (0-2) % Neut # (Auto) 3600 (3756-9814) /uL Lymph # (Auto) 1600 (3783-3166) /uL [place] # (Auto) 600 (0-900) /uL Eos # (Auto) 200 (0-450) /uL Baso # (Auto) 0 (0-100) /uL Sodium 139 (137-145) mmol/L Potassium 4.2 (3.4-5.1) mmol/L Chloride 102 (98-107) mmol/L Carbon Dioxide 29 (22-32) mmol/L BUN 15 (7-17) mg/dL Creatinine 0.75 (0.52-1.04) mg/dL Estimated GFR > 60.0 (>60) mL/min BUN/Creatinine Ratio 20.0 (6-22) Glucose 96 (80-110) mg/dL Calcium 9.5 (8.4-10.2) mg/dL Total Bilirubin 0.4 (0.2-1.3) mg/dL AST 25 (14-36) IU/L ALT 20 (<35) IU/L Alkaline Phosphatase 70 (38-126) U/L Total Protein 7.5 (6.3-8.2) g/dL Albumin 4.5 (3.5-5.0) g/dL Globulin 3.0 (1.7-4.1) g/dL Albumin/Globulin Ratio 1.5 (1.0-2.8) SARS-CoV-2 (PCR) Negative (Negative) Imaging Data CT scan - head: Radiologist's Impression: FINDINGS:? Image quality:? Excellent.? ? CSF spaces:? Basal cisterns are patent.? No extra-axial fluid collections.? The ventricles are symmetric in size and shape.? ? Brain:? No intracranial bleeds or masses.? There is cerebral volume loss for age, with resultant ventricular and sulcal prominence.? There are periventricular and deep white matter chronic small vessel ischemic changes.? There is intracranial internal carotid artery atherosclerosis.? ? Skull and face:? Calvarium and visualized facial bones appear intact, without suspicious lesions.? ? Sinuses:? Visualized sinuses and mastoids are clear.? ? ? IMPRESSION:? No acute intracranial hemorrhage is seen.? ? No acute intracranial process is seen.? ? If it would be helpful for clinical management decision making in this patient with this given history, please consider a dedicated, scheduled IAC protocol brain MRI (without and with contrast) for further evaluation (assuming that there is no contraindication).? ? ? Dictated by: Collin Oconnor M.D. on 01/01/2021 at 14:42 ? ? MDM Narrative Medical decision making narrative: 75-year-old woman who is concerned that she is having symptoms related to a head trauma from August. I suspect that symptoms today are not related to the incident in August. All of her symptoms have resolved until approximately 3 days ago. Wondering if she may be having a prodrome prior to a zoster outbreak to explain the headaches as well as the paresthesia. Did review with her that if she does notice fascicular lesions she needs to contact us or follow-up with her primary care doctor. CT scan is reassuring as is lab work. Clinical exam does not suggest a stroke. At this time I do not have a full explanation for her symptoms but I do believe it is safe for her to go home. She has had relief in working with her chiropractor before and has an appointment with him in 2 days to help the headache. Encouraged her to return if symptoms change or worsen. She is safe for home discharge Discharge Plan Departure Patient Disposition: Home Clinical Impression: Hyperesthesia, Headache, Abnormal gait Instructions: DI for Shingles, Cerebellar Stroke Activity Restrictions/Additional Instructions: Thank you for coming in today Your CT scan was very reassuring. There is no skull fracture no abnormalities of the scalp itself and no bleeding inside her brain. There were no obvious strokes appreciated either. With the burning pain on the top of your head, the possibility of developing shingles is considered. Sometimes there is a prodrome of severe burning sensation before the blisters break out. Please pay attention to this area and if you do noticed blisters then we do need to start shingles medications With the abnormal gait yesterday and bumping into metzger and doors, that is concerning. However, today there are no signs of that and no clinical evidence of a stroke. I would recommend that you follow-up with her chiropractor to help with the headache. If you find that you are having worsening gait disturbances and continue walking into metzger, the next step in the workup would be an MRI. If things get dramatically worse you do need to come back to the emergency department. If you notice that you are having blisters breaking out to suggest that this is shingles outbreak, you can either contact your primary care doctor or return to the ER we can help with medications. I wish you the best Prescriptions: No Action levothyroxine 75 mcg capsule 75 mcg PO DAILY 0RF bupropion HCl [Wellbutrin XL] 150 mg tablet extended release 24 hr 150 mg PO QAM 0RF CMP Estradiol Vaginal Cream 0.0125% 0.5 - 1 g vaginal .COMPLEX Qty: 30 2RF Rx Instructions: Apply 0.5-1gm to vagina at bedtime for 14 nights, then 2 times weekly. fluconazole 150 mg tablet 150 mg PO ONCE Qty: 1 0RF Rx Instructions: as a single dose cefdinir 300 mg capsule 300 mg PO BID Qty: 10 0RF Progesterone 300 mg transdermal 0RF testosterone 2 mg/24 hour patch 24 hour 1 patch transdermal DAILY 0RF ashwagandha root extract 300 mg capsule PO 0RF [facility] NAC 600 mg PO 0RF [facility] Pregnenolone 100 mg PO 0RF [facility] Prostate PO 0RF [facility] Relief Factor PO 0RF [facility] Stress gaurd 120 mg PO 0RF [facility] Vessel Protection PO 0RF magnesium L- Theonate PO 0RF [place]'s wort 300 mg capsule 300 mg PO DAILY 0RF ther-biotic complete PO 0RF zinc gluconate 50 mg tablet 50 mg PO DAILY 0RF Referrals: Shanna Gaines ARNP [Primary Care Provider] -
[2021-01-01 22:03] VITALS: BP 144/72; PULSE 60; RESP 16; O2SAT 96
== END 2021-01-01 22:35 | disposition home or self-care (01) ==
PROVIDERS: Emergency Medicine; Emergency Provider Emergency Medicine; Family Provider Family Medicine; PCP Registered Nurse
DX: R20.3 Hyperesthesia (principal); R51.9 Headache, unspecified; R26.9 Unspecified abnormalities of gait and mobility; Z20.822 Contact with and (suspected) exposure to COVID-19
CPT/HCPCS: 36415; 70450; 72125; 80053; 85025; 87635; 99284; C9803

== ENCOUNTER → 2021-01-06 16:55 | Outpatient (CLI) | payer MEDICARE, OTHER, SELFPAY ==
--- NOTE | 2021-01-06 16:59 | DI.MRI.S_ITS ---
PROCEDURE: MR HEAD/BRAIN WO/W CON INDICATIONS: HAs, head injury TECHNIQUE: Noncontrast axial T1 spin echo, axial T2 fast spin echo, sagittal and axial FLAIR, coronal T2 fast spin echo, axial gradient echo, axial diffusion and ADC through the brain. After the administration of contrast, axial and coronal T1 spin echo with fat saturation through the brain. COMPARISON: [facility], CT, CT HEAD/BRAIN WO CON, 01/01/2021, 15:28. FINDINGS: Image quality: Excellent. CSF spaces: Basal cisterns are patent. Apparent nonenhancing arachnoid cyst can be seen along the anterior aspect the left cerebellum that measures up to 1.7 cm. Ventricles are normal in size and shape. Brain: No midline shift. No intracranial bleeds or masses. No abnormal intracranial enhancement. There is cerebral volume loss for age. There is periventricular white matter chronic small vessel ischemic change. The brainstem appears normal. Diffusion-weighted images demonstrate no acute ischemic insults. No chronic ischemic insults. Normal intravascular flow voids are present. Skull and face: Calvarial marrow is normal in signal. Orbits appear normal. Note is made of bilateral lens replacements. Sinuses: Sinuses and mastoids appear clear. IMPRESSION: No acute intracranial hemorrhage is seen. No masses or abnormal enhancement can be seen. Dictated by: Collin Oconnor M.D. on 01/06/2021 at 17:37 Approved by: Collin Oconnor M.D. on 01/06/2021 at 17:39
== END ==
PROVIDERS: Family Provider Family Medicine; PCP Registered Nurse; Referring Provider Registered Nurse; Visit Provider Registered Nurse
DX: R51.9 Headache, unspecified (principal); R26.9 Unspecified abnormalities of gait and mobility; R20.3 Hyperesthesia; Z87.828 Personal history of other (healed) physical injury and trauma
CPT/HCPCS: 70553; A9579

== ENCOUNTER → 2021-08-06 14:24 | Outpatient (CLI) | payer MEDICARE, OTHER, SELFPAY ==
--- NOTE | 2021-08-06 14:25 | DI.RAD.S_ITS ---
PROCEDURE: XR CHEST 2V INDICATIONS: SOB TECHNIQUE: 2 views of the chest were acquired. COMPARISON: [facility], , CHEST 2 VIEW, 05/03/2017, 23:04. FINDINGS: Surgical changes and devices: None. Lungs and pleura: Lungs are clear. No pleural effusions or pneumothorax. Mediastinum: Mediastinal contours are normal. Heart size is normal. Bones and chest wall: No suspicious bony abnormalities. Soft tissues appear unremarkable. IMPRESSION: No acute pulmonary process. Dictated by: Celina Espinoza M.D. on 08/06/2021 at 17:28 Approved by: Celina Espinoza M.D. on 08/06/2021 at 17:29
--- NOTE | 2021-08-06 14:25 | DI.MG.S_ITS ---
BILATERAL DIGITAL SCREENING MAMMOGRAM 3D/2D WITH CAD: 08/06/2021 CLINICAL: Routine screening. Comparison is made to exams dated: 01/13/2020 ultrasound, 01/13/2020 mammogram - [facility], 04/17/2015 mammogram, and 08/28/2013 mammogram - [facility]. There are scattered fibroglandular elements in both breasts. Current study was also evaluated with a Computer Aided Detection (CAD) system. No significant masses, calcifications, or other findings are seen in either breast. There has been no significant interval change. IMPRESSION: NEGATIVE There is no mammographic evidence of malignancy. A 1 year screening mammogram is recommended. Based on the Tyrer Cuzick model (a risk assessment model) the patient's lifetime risk is 4.7% and her 10 year risk is 3.8%. According to the ACR, ACS, and NCCN guidelines, an annual breast MRI exam along with mammogram is recommended if the patient's lifetime risk is 20% or greater. This exam was interpreted at Station ID: [id number]. NOTE: For mammograms, a report in lay terms will be sent to the patient. Approximately 15% of breast malignancies will not be visualized mammographically. In the management of a palpable breast mass, a negative mammogram must not discourage biopsy of a clinically suspicious lesion. Electronically Signed By: Juan Hernandez M.D., jr/david:08/06/2021 15:00:50 letter sent: Normal Exam ACR BI-RADS Category 1: Negative [id number]
--- NOTE | 2021-08-06 14:25 | DI.US.S_ITS ---
PROCEDURE: US PELVIC COMPLETE INDICATIONS: EVALUATE PELVIC TENDERNESS AND POST MENOPAUSAL BLEEDING TECHNIQUE: Real-time scanning was performed of the pelvic organs, with image documentation. Additional endovaginal scanning was necessary due to incomplete visualization of the adnexal and endometrial structures by transabdominal scanning. COMPARISON: [facility], CT, CT KIDNEY URETER BLADDER (KUB), 12/09/2019, 8:04. [facility], MR, MR ABDOMEN PELVIS WWO CON, 01/01/2020, 14:12. FINDINGS: Uterus: Uterus is anteverted and normal in size at 8.2 x 5.0 x 4.3 cm. The myometrium is heterogeneous and contains multiple uterine fibroids. The endometrium measures 6 mm combined thickness. There is a 2.3 x 2.2 x 1.7 cm left posterior fundal, subserosal uterine fibroid. There is a 3.4 x 3.5 x 2.7 cm right anterior uterine fundal subserosal fibroid. There is also a 1.4 x 1.1 x 1.2 cm left anterior uterine fundal subserosal fibroid. Ovaries: The right ovary measures 1.2 x 0.9 x 0.8 cm. The left ovary measures 1.4 x 0.9 x 0.7 cm.. The ovaries have a normal sonographic appearance. No adnexal masses are seen. Other: No pathologic free abdominal or pelvic fluid. Redemonstration of known minimally complicated right renal cyst measuring 3.6 x 3.2 x 3.5 cm. IMPRESSION: Myomatous uterus with multiple subserosal fibroids as described above. Normal endometrial thickness measuring 6 mm in combined thickness. Redemonstration of known minimally complicated right renal cyst measuring up to 3.6 cm in size. We strive to produce accurate, complete, and clear reports of imaging services. To assist us in improving patient care, this report was composed using standard report templates and voice recognition software. Therefore, it may contain abnormal punctuation, insertions and/or omissions. Occasional wrong-word or sound-alike substitutions may occur. Though we review the report and make efforts to correct it, we do recommend that the report be read carefully in proper context to recognize any text inaccuracies. Dictated by: Rodrigo Gama M.D. on 08/06/2021 at 17:45 Approved by: Rodrigo Gama M.D. on 08/06/2021 at 17:50
== END ==
PROVIDERS: Family Provider Family Medicine; PCP Registered Nurse Diabetes Educator; Referring Provider Registered Nurse Diabetes Educator; Visit Provider Registered Nurse Diabetes Educator
DX: Z12.31 Encounter for screening mammogram for malignant neoplasm of breast (principal); R06.00 Dyspnea, unspecified; N95.0 Postmenopausal bleeding; D25.2 Subserosal leiomyoma of uterus; N28.1 Cyst of kidney, acquired
CPT/HCPCS: 71046; 76830; 76856; 77063; 77067

== ENCOUNTER → 2022-01-03 13:36 | Outpatient (CLI) | payer MEDICARE, OTHER, SELFPAY ==
[2022-01-03 14:32] LABS: COVID19 -Nasal RAPID Negative (Negative)
== END ==
PROVIDERS: Family Provider Family Medicine; PCP Registered Nurse Diabetes Educator; Visit Provider Obstetrics & Gynecology
DX: Z01.812 Encounter for preprocedural laboratory examination (principal); Z20.822 Contact with and (suspected) exposure to COVID-19
CPT/HCPCS: 87635

== ENCOUNTER 2022-01-03 14:17 | Day surgery (SDC) | payer MEDICARE, OTHER, SELFPAY ==
[2021-12-28 15:05] VITALS: BMI 31.8
--- NOTE | 2022-01-03 | PATH_ITS ---
[facility] Accession Number: [id number] . 01 Material submitted: . endometrium - ENDOMETRIAL CURETTINGS . 01 Diagnosis: A. Endometrium, Curettage: Scant specimen consisting predominantly of blood and mucoinflammatory debris. Few superficial strips and fragments with stroma of nonproliferative endometrial glandular epithelium, negative for significant cytologic atypia and malignancy; see comment. Few fragments of inflamed benign endocervical mucosa with squamous metaplasia, negative for dysplasia. . COMMENT: The specimen is scant and given the small volume of endometrial tissue, it is considered suboptimal for the evaluation for endometrial neoplasia. Clinico-radiologic correlation is necessary. MRV 01/10/2022 1446 Local . 01 Electronically signed: . Santa Vidal MD, Pathologist NPI- [id number] . 01 Gross description: . ENDOMETRIAL CURETTINGS: Received in formalin are minute fragments of mucoid and hemorrhagic material measuring 1.5 x 1.5 x 0.4 cm in aggregate. Submitted in toto in 1 cassette. /RUTHANN 01/04/2022 2344 Local . 01 Pathologist provided ICD-10: N88.2 . 01 CPT . 493861 Specimen Comment: A courtesy copy of this report has been sent to [facility] Performed at: 01 [facility] [address], [place], [place] [id number] MD Miles Morelos MD Phone: [phone]
[2022-01-03] MEDS: LACTATED RINGERS 1,000 ML 42 ML IV (14:53)
[2022-01-03 15:07] VITALS: BP 133/86; PULSE 65; RESP 18; TEMP 36.2; O2SAT 99; BMI 31.8
[2022-01-03 15:15] LABS: Add Manual Diff / Slide Review NO; Basophils Absolute Auto 100 /uL (0-100); Basophils Percent Auto 1.3 % (0-2); Eosinophils Absolute Auto 200 /uL (0-450); Eosinophils Percent Auto 2.5 % (2-4); Hematocrit 40.8 % (36-46); Lymphocytes Absolute Auto 1600 /uL (1100-4500); Lymphocytes Percent Auto 24.5 % (25-40); Mean Corpuscular HGB Conc 34.2 % (30-36); Mean Corpuscular Hemoglobin 32.1 PG (26-34); Mean Corpuscular Volume 93.8 fL (80-100); Monocytes Absolute Auto 700 /uL (0-900); Monocytes Percent Auto 10.3 % (3-14); Neutrophils Absolute Auto 4000 /uL (1500-7000); Neutrophils Percent Auto 61.4 % (50-75); Platelet Count 226 X10^3/uL (150-400); Red Blood Cell Count 4.35 X10^6/uL (4.0-5.2); Red Cell Distribution Width 12.9 % (11.6-14.8); White Blood Cell Count 6.5 X10^3/uL (4.5-11.0)
--- NOTE | 2022-01-03 15:33 | PM.PREOP ---
Pre-operative Note COVID-19 COVID-19 status: Negative Result date/Date tested (Pos, Neg/Pending): 01/03/22 Criteria for continued procedure: Possibility delay results in more complex future surgery or treatment Interval Note History & Physical reviewed/Exam performed by Physician: Yes Changes to H&P: No
--- NOTE | 2022-01-03 15:57 | SUR.OPER ---
Lithotomy on padded OR bed, head on pillow, arms secured on padded arm boards at <90 degrees abduction. Legs secured in padded yellow fins stirrups.
[2022-01-03] MEDS: SILVER NITRATE STICK 2 EACH TOP (16:41)
[2022-01-03 16:55] VITALS: BP 141/71; PULSE 62; RESP 19; TEMP 36.5; O2SAT 98
--- NOTE | 2022-01-03 17:02 | P.OP_ITS ---
Operative Date/Time/Diagnoses Date of procedure: 01/03/22 Time of procedure: 16:00 Pre-op diagnosis: Postmenopausal bleeding, mildly thickened endometrium, stenotic cervix Post-op diagnosis: same (Postmenopausal bleeding, atrophic appearing endometrium) Procedure & Clinicians Procedure: Dilatation and curettage, hysteroscopy Same procedure as scheduled: Yes Indications: 76-year-old female with postmenopausal bleeding. She has a fibroid uterus diagnosed 2 years ago, which is stable in size. She is on systemic hormone replacement therapy and had spotting 2-3 years ago. She has had recurrent spotting for about 6 months. This past month she has had increased bleeding, more than spotting, with bleeding similar to a menses, but her HRT was being lowered at that time. Ultrasound of the endometrium showed 6 mm endometrium. I recommended endometrial sampling to rule out any hyperplasia or cancer. Attempt at office endometrial biopsy was unsuccessful even after pretreatment with misoprostol, due to a stenotic cervix. I recommended proceeding with dilatation and curettage, hysteroscopy under anesthesia for evaluation of the endometrium due to the postmenopausal bleeding. She agreed. The procedure and surgical risks were reviewed. Surgeon: Sunita Blackburn Click Yes if Unassisted: Yes Anesthesia Type: General Operative Notes Findings: On cervical dilatation, uterine cavity was noted to be deviated somewhat to her right side. Atrophic normal appearing endometrium and endocervical tissue. Normal appearing uterine cavity without any endometrial polyps or submucosal fibroids. Tubal ostia were visualized bilaterally. Closure Type: not applicable Specimen(s): other (Endometrial curettings) Estimated Blood Loss (mL): 3 Blood products transfused: none Procedure in detail: After being properly identified she was transferred to the operating room. She had voided just prior to the procedure. After an adequate level of general anesthesia was obtained she was placed in Russell stirrups in the dorsal lithotomy position. Bimanual examination was performed, with uterus noted to be anteverted. She was prepped and draped in routine sterile fashion. An open- sided speculum was placed and the cervix was grasped with a single-tooth tenaculum. A small dilator was able to be passed through the internal cervical os. The cervix was able to be dilated a small amount, but it was difficult to get her dilated enough for the hysteroscope. Note was made that from the external cervical os, the cervical canal and uterine cavity deviated toward her right side. The uterus was also fairly anteflexed. With repeat effort with some different dilators, the cervix was dilated just enough to pass the hysteroscope. Normal saline solution was used as the uterine distention medium. On passing the hysteroscope, the cervical canal appeared normal. With entrance into the uterine cavity, the hysteroscopic fluid remained bloody from the dilatation, despite different maneuvers to try to clear the blood. Some visualization was obtained at the fundus and cavity appeared overall normal, but visualization was not adequate to assess the endometrium and cavity. The hysteroscope was removed and repeat dilatation attempted. At this time the cervix was able to be further dilated up with the Mohsen dilators.. The uterus sounded to 8 cm. The hysteroscope was again placed and with the cervix being more dilated with ability for some of the hysteroscopic fluid to drain out of the cervix, the blood cleared from the uterine cavity and adequate visualization was obtained. The uterine cavity was normal in shape. The tubal ostia were v isualized bilaterally. The endometrium was normal for age, atrophic in appearance without any visible abnormal tissue, polyps or submucosal fibroids. The hysteroscope was removed. Sharp curettage of the uterine cavity was performed for a minimal amount of tissue, consistent with the atrophic appearance. This was placed on Tel to go for pathology. The tenaculum was removed. There was some light bleeding at her left tenaculum site which he is after application of silver nitrate, then good hemostasis remained. It was some normal minimal bloody hysteroscopic fluid noted through the cervical os. The procedure was ended. She tolerated the procedure well and went to recovery room stable condition. Complications: none Post-operative Condition: stable Disposition: PACU Plan for aftercare: Discharge to home with follow-up appointment in approximately 2 weeks
[2022-01-03 17:10] VITALS: BP 150/71; PULSE 60; RESP 14; O2SAT 97
[2022-01-03 17:15] VITALS: BP 150/71; PULSE 61; RESP 18; TEMP 36.5; O2SAT 97
[2022-01-03 17:18] VITALS: BP 131/54; PULSE 68; RESP 13; TEMP 36.6; O2SAT 98
[2022-01-03] MEDS: OXYCODONE IR 5 MG TABLET PO (17:23)
[2022-01-03 18:33] LABS: BUN Creatinine Ratio 28.6 (6-22); Blood Urea Nitrogen 16 mg/dL (7-17); Calcium 9.1 mg/dL (8.4-10.2); Carbon Dioxide 24 mmol/L (22-32); Chloride 104 mmol/L (98-107); Estimated Glomerular Filt Rate > 60 mL/min (>60); Glucose 99 mg/dL (80-110); Sodium 138 mmol/L (137-145)
[2022-01-03 18:36] LABS: HEMOLYSIS 77 (0-50)
[2022-01-03 18:37] LABS: Potassium 4.4 mmol/L (3.4-5.1)
== END 2022-01-03 17:59 | disposition home or self-care (01) ==
PROVIDERS: Family Provider Family Medicine; PCP Registered Nurse Diabetes Educator; Referring Provider Obstetrics & Gynecology; Visit Provider Obstetrics & Gynecology
PROC: 0UDB8ZZ Extraction of Endometrium, Via Natural or Artificial Opening Endoscopic (ICD-10-PCS; CPT 58558; principal; 2022-01-03 15:30)
DX: N95.0 Postmenopausal bleeding (principal); N88.2 Stricture and stenosis of cervix uteri; R93.89 Abnormal findings on diagnostic imaging of other specified body structures; Q51.818 Other congenital malformations of uterus; Z20.822 Contact with and (suspected) exposure to COVID-19; Z01.812 Encounter for preprocedural laboratory examination
CPT/HCPCS: 58558; 80048; 82962; 85025; 87635; C9803; J1100; J2405; J2704; J3010

== ENCOUNTER → 2023-10-05 08:54 | Outpatient (CLI) | payer MEDICARE, OTHER, SELFPAY ==
[2023-10-06 13:36] LABS: Candida species Negative (Negative); Gardnerella vaginalis Negative (Negative); Trichomoas vaginalis Negative (Negative)
== END ==
PROVIDERS: Family Provider Family Medicine; PCP Registered Nurse Diabetes Educator; Visit Provider Student in an Organized Health Care Education/Training Program
DX: N89.8 Other specified noninflammatory disorders of vagina (principal)
CPT/HCPCS: 87480; 87510; 87660

== ENCOUNTER → 2023-10-11 08:17 | Outpatient (CLI) | payer MEDICARE, OTHER, SELFPAY ==
--- NOTE | 2023-10-11 08:18 | DI.US.S_ITS ---
PROCEDURE: US PELVIC COMPLETE INDICATIONS: mid pelvic pain TECHNIQUE: Real-time scanning was performed of the pelvic organs, with image documentation. Additional endovaginal scanning was necessary due to incomplete visualization of the adnexal and endometrial structures by transabdominal scanning. COMPARISON: [facility], , US PELVIC COMPLETE, 08/06/2021, 15:06. FINDINGS: Uterus: Uterus is anteverted and normal in size at 7.5 x 4.2 x 6.4 cm. The myometrium is heterogeneous. The endometrium measures 6 mm combined thickness. Multiple intrauterine fibroids. There is a an intramural fibroid noted in the lateral right uterus measuring 2.5 x 2.2 x 2.5 cm. There is an intramural midline posterior fibroid measuring 2.6 x 1.9 x 2.5 cm. There is an intramural anterior left uterine fibroid measuring 1.8 x 1.5 x 1.6 cm. Smaller, additional intramural fibroids were visualized. Ovaries: Bilateral ovaries are not visualized on this study. No adnexal masses are seen. Other: No pathologic free abdominal or pelvic fluid. IMPRESSION: Multiple intramural uterine fibroids as described above. Bilateral ovaries were not visualized on this examination. We strive to produce accurate, complete, and clear reports of imaging services. To assist us in improving patient care, this report was composed using standard report templates and voice recognition software. Therefore, it may contain abnormal punctuation, insertions and/or omissions. Occasional wrong-word or sound-alike substitutions may occur. Though we review the report and make efforts to correct it, we do recommend that the report be read carefully in proper context to recognize any text inaccuracies. Dictated by: Rodrigo Gama M.D. on 10/11/2023 at 15:25 Approved by: Rodrigo Gama M.D. on 10/11/2023 at 15:28
== END ==
PROVIDERS: Family Provider Family Medicine; PCP Registered Nurse Diabetes Educator; Referring Provider Student in an Organized Health Care Education/Training Program; Visit Provider Student in an Organized Health Care Education/Training Program
DX: D25.1 Intramural leiomyoma of uterus (principal); R10.2 Pelvic and perineal pain
CPT/HCPCS: 76830; 76856

== ENCOUNTER → 2024-07-26 11:59 | Outpatient (CLI) | payer MEDICARE, OTHER, SELFPAY ==
--- NOTE | 2024-07-26 12:01 | DI.MG.S_ITS ---
MM diagnostic mammo BI, US breast BI limited: 07/26/2024 BI-RADS: 4 CLINICAL: 78-year old female for bilateral diagnostic mammogram and bilateral diagnostic breast ultrasound. Tyrer-Cuzick lifetime risk of 3.4%. No personal or first- degree family history of breast cancer. The patient reports pain (3 months) in the left breast. PRIOR EXAMS 08/06/2021, 01/13/2020. MAMMOGRAPHY TECHNIQUE: 2D and 3D (tomosynthesis) digital mammographic views obtained, with additional images as needed for full coverage. Current study was also evaluated with a Computer Aided Detection (CAD) system. ULTRASOUND TECHNIQUE TARGETED Bilateral Breast Ultrasound: Real-time ultrasound exam was performed focused to area of clinical and/or imaging concern. DENSITY B. There are scattered areas of fibroglandular density. MAMMOGRAPHY FINDINGS Right: Outer Central, Anterior depth: There is a new focal asymmetry present. Left: No correlate to pain at 2-3:00. No suspicious mass, asymmetry, microcalcification, or other abnormality seen. ULTRASOUND FINDINGS Right: Upper Outer at 9:30, 5 cm from nipple, measuring 0.5 x 0.4 x 0.3 cm: There is an oval, indistinct, hyperechoic mass. Left: Outer at 3:00, 10 cm from nipple: No US correlate for pain. IMPRESSION: Right (Mass): Upper Outer at 9:30, 5 cm from nipple, measuring 0.5 x 0.4 x 0.3 cm * Suspicious findings with likelihood of malignancy. Left * No evidence of malignancy. RECOMMENDATIONS * Left focal pain - recommend clinical followup and repeat imaging if there are new or worsening symptoms. Right: Upper Outer at 9:30, 5 cm from nipple * Ultrasound-guided biopsy for further evaluation. COMMENTS: The right sided mass needing biopsy is an incidental finding. OVERALL ASSESSMENT CATEGORY BI-RADS-4: Suspicious. ELECTRONICALLY SIGNED: Tone Topete M.D. on 07/26/2024 at 01:47:42 PM PT Interpreting Station ID: [id number]
== END ==
LOC: MAMMO 12:00
PROVIDERS: Family Provider Family Medicine; PCP Registered Nurse Diabetes Educator; Referring Provider Registered Nurse Diabetes Educator; Visit Provider Registered Nurse Diabetes Educator
DX: R92.8 Other abnormal and inconclusive findings on diagnostic imaging of breast (principal); N64.4 Mastodynia; N63.11 Unspecified lump in the right breast, upper outer quadrant; R19.7 Diarrhea, unspecified
CPT/HCPCS: 76642; 77066; 87177; G0279

== ENCOUNTER → 2024-07-26 15:43 | Outpatient (CLI) | payer MEDICARE, OTHER, SELFPAY | PROVIDERS: Family Provider Family Medicine; PCP Registered Nurse Diabetes Educator; Referring Provider Registered Nurse Diabetes Educator; Visit Provider Family Medicine | DX: R19.7 Diarrhea, unspecified (principal) | CPT/HCPCS: 83993; 87177 ==

== ENCOUNTER → 2024-08-23 12:18 | Outpatient (CLI) | payer MEDICARE, OTHER, SELFPAY ==
--- NOTE | 2024-08-23 | PATH_ITS ---
[facility] Accession Number: [id number] No. of containers..01 Tissue . 01 Material submitted: . breast - RIGHT BREAST MASS 9:30 5 CMFN . 01 Diagnosis: RIGHT BREAST MASS, 9:30, 5 CM FN, CORE BIOPSY: Granulomatous mastitis, see comment. Calcifications identified in inflammatory tissue. Negative for atypical hyperplasia, in situ carcinoma, and invasive carcinoma. MRV 08/27/2024 1359 Local . 01 Comment: The biopsies demonstrate abundant non-necrotizing granulomatous inflammation, consistent with granulomatous mastitis. A CK NATALIE is performed and is negative for carcinoma. A CD68 is performed and highlights benign histiocytes and giant cells. A Gram stain is negative for Gram-reactive organisms. The differential diagnosis is broad and includes, but is not limited to, foreign body reaction (such as prior instrumentation or an adjacent unsampled ruptured duct), idiopathic granulomatous mastitis, cystic neutrophilic granulomatous mastitis, infection, and possibly sarcoidosis. . Stains for acid-fast bacilli and fungal organisms will be performed and reported in an addendum. . All stains show adequate controls. . * This test was developed and the performance characteristics were validated by [employer]. It has not been cleared or approved by the U.S. Food and Drug Administration. . 01 Electronically signed: . Natalie Holcomb DO, Pathologist NPI- [id number] . 01 Gross description: . Received one formalin-filled container, labeled with the patient's name and RT breast 9:30 5 cm FN. The specimen is received with a plastic filter in the container. Sample loose in container and consists of multiple yellow-hill to hill-ortiz pieces of soft tissue which range in size from 0.2 x 0.1 x 0.1 cm to 1.0 x 0.4 x 0.3 cm. All fragments are totally submitted in one cassette. Collection date: 08/23/2024. Possible collection time: 1428. Total fixation time: Approximately 12 hours. Time in formalin not provided. Cold ischemic time cannot be calculated. ([id number]) /[facility] 08/24/2024 0924 Local . 01 Pathologist provided ICD-10: N63.11 . 01 CPT . 425017, N62908, Y46866, 385230, 884142, 208689 Specimen Comment: A courtesy copy of this report has been sent to [facility] Pathology Performed at: [address] [facility] [address] [address], [place], [place] [id number] MD Miles Morelos MD Phone: [phone]
--- NOTE | 2024-08-23 12:20 | DI.US.S_ITS ---
US bx breast perc w vac device: 08/23/2024. Rad-Path Correlation: Pending CLINICAL: 78-year old female for right procedure that resulted from diagnostic mammogram on 07/26/2024. Tyrer-Cuzick lifetime risk of 4.3%. No personal or first-degree family history of breast cancer. The patient had a prior right breast biopsy. CONSENT Risks including but not limited to bleeding and infection, benefits and alternatives were discussed with the patient. The patient agreed to the procedure and signed informed consent. Time out procedure was used. ROUTINE Right: Patient positioned in the supine or supine-oblique position, prepped and draped in the usual manner using sterile technique. TECHNIQUE Right: Upper Outer at 9:30, 5 cm from nipple: Procedure: Ultrasound-guided vacuum-assisted biopsy of a mass with Cork- shaped marker placement. Device: 14-gauge vacuum-assisted biopsy instrument. BD EleVation(TM). Approach: Lateral. Anesthesia: Local anesthesia obtained using 1%-lidocaine. Secondary local anesthesia obtained using 2%-lidocaine with epinephrine. Skin Entry: Incision with #11 blade. Passes: 3. Specimens: 3. Targeting Confirmation: Real-time Observation and Post-Procedure Imaging. Marker Placement: Cork marker placed in target location. Post-procedure imaging: Post-procedure imaging confirms the marker to be in target location. Rad/Path Correlation: Pending receipt of pathology report. Conclusion: Ultrasound-guided Vacuum-assisted biopsy with post-procedure CC and ML mammographic views with marker placement, Right: Upper Outer at 9:30, 5 cm from nipple COMPLICATIONS: No complications were encountered while the patient was in our department. DISPOSITION The patient left our department in good condition with aftercare instructions and urged to contact us should any problem arise. The breast was compressed to achieve hemostasis. SUMMARY Right: Upper Outer at 9:30, 5 cm from nipple: Ultrasound-guided vacuum- assisted biopsy of a mass with Cork-shaped marker placement. PATHOLOGY Right: Upper Outer at 9:30, 5 cm from nipple: Radiologist-Pathologist Correlation: Pending receipt of pathology report. ELECTRONICALLY SIGNED: Kerwin Alan M.D. on 08/23/2024 at 08:33:45 PM PT Interpreting Station ID: [id number]
--- NOTE | 2024-08-23 14:12 | DI.MG.S_ITS ---
MM clip placement RT: 08/23/2024. BI-RADS: None CLINICAL: 78-year old female for right diagnostic mammogram. Tyrer-Cuzick lifetime risk of 4.3%. No personal or first-degree family history of breast cancer. The patient had a prior right breast biopsy. PRIOR EXAMS Mammogram(s): 07/26/2024. Three Other Exams on 08/06/2021, 01/13/2020. MAMMOGRAPHY TECHNIQUE: 2D and 3D (tomosynthesis) digital mammographic views obtained, with additional images as needed for full coverage. Current study was also evaluated with a Computer Aided Detection (CAD) system. DENSITY Right: B. There are scattered areas of fibroglandular density. MAMMOGRAPHY FINDINGS Right: Upper Outer at 9:30, 5 cm from nipple: There is a (Cork) biopsy marker in targeted location. IMPRESSION: Right * Biopsy marker present. OVERALL ASSESSMENT CATEGORY BI-RADS None: This exam requires no BI-RADS. ELECTRONICALLY SIGNED: Kerwin Alan M.D. on 08/23/2024 at 08:34:19 PM PT Interpreting Station ID: [id number]
== END ==
PROVIDERS: Family Provider Family Medicine; PCP Registered Nurse Diabetes Educator; Referring Provider Registered Nurse Diabetes Educator; Visit Provider Registered Nurse Diabetes Educator
DX: N61.21 Granulomatous mastitis, right breast (principal); N63.11 Unspecified lump in the right breast, upper outer quadrant; R92.321 Mammographic fibroglandular density, right breast
CPT/HCPCS: 19083; 77065

== ENCOUNTER 2024-09-06 06:22 | Day surgery (SDC) | payer MEDICARE, OTHER, SELFPAY ==
--- NOTE | 2024-09-06 | PATH_ITS ---
[facility] Accession Number: [id number] No. of containers..03 Tissue . 01 Material submitted: . PART A: colon - COLON, ASCENDING POLYP PART B: colon - COLON, LEFT RANDOM PART C: colon - COLON, RIGHT RANDOM . 01 Diagnosis: Part A: COLON, ASCENDING POLYP: Tubular adenoma. . Part B: COLON, LEFT RANDOM: Colonic mucosa with no diagnostic alterations. No active inflammation, granulomas, dysplasia, or malignancy identified. No evidence of colitis. . Part C: COLON, RIGHT RANDOM: Colonic mucosa with no diagnostic alterations. No active inflammation, granulomas, dysplasia, or malignancy identified. No evidence of colitis. [facility] 09/16/2024 1230 Local . 01 Electronically signed: . Miles Morelos MD, Pathologist NPI- [id number] . 01 Gross description: . A. Received in formalin with two identifiers and ascending colon polyp, is a single ortiz soft tissue fragment, 1.3 cm in greatest dimension admixed with possible fecal matter. The single tissue fragment is entirely submitted in A1. The remaining fragments aggregate to 1.4 x 0.5 x 0.1 cm. Filtered and submitted entirely in A2. . B. Received in formalin with two identifiers and random left colon biopsies are two ortiz soft tissue fragments ranging from 0.3 to 0.3 cm in greatest dimension, entirely submitted in B1. . C. Received in formalin with two identifiers and random right colon biopsies, are two ortiz soft tissue fragments ranging from 0.3 to 0.5 cm in greatest dimension, entirely submitted in C1. (AR:[id number]) /[facility] 09/16/2024 1230 Local . 01 Pathologist provided ICD-10: D12.2, R19.4, R19.7 . 01 CPT . 782599, 155169, 189816 Specimen Comment: A courtesy copy of this report has been sent to [phone] Performed at: [address] [id number] MD Miles Morelos MD Phone: [phone]
[2024-09-06 06:59] VITALS: BP 123/72; PULSE 60; RESP 15; TEMP 36.4; O2SAT 97
--- NOTE | 2024-09-06 07:32 | PM.HP.IH.1 ---
History of Present Illness History of Present Illness Date Patient Seen: 08/30/24 Time Patient Seen: 07:32 Chief complaint: Dx Colonoscopy w/poss bx Narrative: Sunita is a 78-year-old woman with multiple loose bowel movements and a history of polyps. See the Kristi office note for details. [facility] Medical History Frequent loose stools Lower urinary tract symptoms (LUTS) History of nephrolithiasis Painful menstrual periods (~1960) Heavy menstrual period (~1960) Fibroids Hypothyroidism Surgical History History of tonsillectomy H/O tubal ligation Family History Mother Diabetes mellitus Thyroid disease Hypertension Father Hypertension Social History marital status: household members: friend(s) Smoking Status: Never smoker alcohol intake: current caffeine: Yes Meds Home Medications and Allergies Home Medications ?Medication ?Instructions ?Recorded ?Confirmed ?Type [facility] NAC PO 03/16/20 07/23/24 History Held on 06/24/24. Instructions: loose stools [facility] Pregnenolone PO 03/16/20 07/23/24 History Held on 06/24/24. Instructions: loose stools [facility] Relief Factor PO 03/16/20 07/23/24 History Held on 06/24/24. Instructions: loose stools [facility] Stress gaurd PO 03/16/20 07/23/24 History Held on 06/24/24. Instructions: loose stools [facility] Vessel Protection PO 03/16/20 07/23/24 History Held on 06/24/24. Instructions: loose stools magnesium L- Theonate PO 03/16/20 07/23/24 History Held on 06/24/24. Instructions: loose stools ther-biotic complete PO 03/16/20 07/23/24 History Held on 06/24/24. Instructions: loose stools zinc gluconate 50 mg tablet 50 mg PO DAILY 03/16/20 07/23/24 History Held on 06/24/24. Instructions: loose stools cholecalciferol (vitamin D3) 125 125 mcg PO DAILY 07/21/21 07/23/24 History mcg (5,000 unit) capsule Held on 06/24/24. Instructions: loose stools prasterone (dhea) PO 07/21/21 07/23/24 History Held on 06/24/24. Instructions: loose stools CMP estradiol topical 11/03/21 07/26/24 History CMP progesterone topical 11/03/21 07/26/24 History CMP testosterone topical 11/03/21 07/26/24 History levothyroxine 100 mcg tablet 100 mcg PO DAILY 10/02/23 09/06/24 History red yeast rice 600 mg tablet 600 mg PO DAILY 03/20/24 07/23/24 History Held on 06/24/24. Instructions: loose stools ashwagandha root extract 300 mg 300 mg PO .QD 06/24/24 07/23/24 History capsule Held on 06/24/24. Instructions: loose stools dihydroberberine 200 mg capsule mg PO .QD 06/24/24 07/23/24 History (Berberine ES-5) Held on 06/24/24. Instructions: loose stools Allergies Allergy/AdvReac Type Severity Reaction Status Date / Time Sulfa (Sulfonamide Allergy Unknown Verified 09/06/24 06:57 Antibiotics) (SULFA (SULFONAMIDE ANTIBIOTICS)) Exam Vital Signs (past 8 hours): - 09/06/24 06:59 Temperature 97.6 F Pulse Rate 60 Respiratory Rate 15 Blood Pressure 123/72 Pulse Oximetry 97 Oxygen Delivery Method Room Air Oxygen Delivery Method Room Air Const General: No acute distress Assessment & Plan Assessment and plan (1) Frequent loose stools: Qualifiers: Diarrhea type: unspecified type Qualified Code(s): R19.7 - Diarrhea, unspecified Status: Acute (2) Personal history of colonic polyps: Status: Acute Plan Colonoscopy Time-Based Coding :: [TOTAL MINUTES] spent with patient and on the chart (including review of chart, obtaining history, exam, reviewing outside data, placing orders, documenting exam and treatment plan, and counseling patient) on [DATE]. 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
[2024-09-06] MEDS: LACTATED RINGERS 1,000 ML 42 ML IV (07:40)
[2024-09-06 08:13] VITALS: BP 115/57; PULSE 62; RESP 16; TEMP 36.2; O2SAT 99
--- NOTE | 2024-09-06 08:17 | P.OP.COLON_ITS ---
Operative Date/Time/Diagnoses Date of procedure: 09/06/24 Time of procedure: 08:18 Pre-op diagnosis: Change bowel habits and history of polyps Post-op diagnosis: same Procedure & Clinicians Study performed: Colonoscopy Same procedure(s) as scheduled: Yes Surgeon: Cameron Fraga Anesthesia Type: MAC +/- Procedure Notes Procedure in detail: Surgeon: Cameron Fraga MD Anesthesia: Mary Rosenbaum AIR INTELLIGENCE OFFICER Procedure: The patient was brought to the endoscopy suite, placed in left lateral decubitus position. The patient was connected to monitoring devices. A time-out was performed. Sedation was administered. Once the patient was adequately sedated, a digital rectal exam was performed and was normal. The scope was then inserted and advanced to the cecum where the appendiceal orifice was identified and photographed. The scope was then slowly withdrawn over gre ater than 6 minutes. The mucosa was thoroughly inspected. There was a 5 mm polyp in the ascending colon removed with a cold snare. No gross abnormalities were found in the colon. Random biopsies were taken from the right and left colon using cold forceps. The scope was retroflexed in the rectum. No other abnormalities were found. The scope was straightened and removed. The patient was awakened and brought to recovery. Scope withdrawal time: 13 minutes Sedation time: 27 minutes EBL: 3 mL Findings: 5 mm polyp ascending colon and grossly normal mucosa throughout the colon Post-procedure Disposition: PACU
[2024-09-06 08:18] VITALS: BP 116/56; PULSE 59; RESP 18; O2SAT 95
[2024-09-06 08:23] VITALS: BP 120/58; PULSE 59; RESP 20; O2SAT 96
[2024-09-06 08:27] VITALS: BP 120/59; PULSE 57; RESP 18; O2SAT 96
[2024-09-06 08:37] VITALS: BP 120/62; PULSE 57; RESP 24; O2SAT 99
== END 2024-09-06 08:59 | disposition home or self-care (01) ==
PROVIDERS: Family Provider Family Medicine; PCP Registered Nurse Diabetes Educator; Referring Provider Surgery; Visit Provider Surgery
PROC: 0DJD8ZZ Inspection of Lower Intestinal Tract, Via Natural or Artificial Opening Endoscopic (ICD-10-PCS; CPT 45378; principal; 2024-09-06 07:45)
DX: R19.4 Change in bowel habit (principal); R19.7 Diarrhea, unspecified; Z86.0100 Personal history of colon polyps, unspecified; D12.2 Benign neoplasm of ascending colon
CPT/HCPCS: 45385; 45380; J2704